=== PATIENT | female | born 1985 | race Caucasian/White ===

== ENCOUNTER 2025-02-22 12:17 | Outpatient (CLI) | payer BC, SELFPAY ==
--- NOTE | ~2025-02-22 | MM_ITS ---
EXAMINATION: MM screening nelia BI w jenna HISTORY: Screening TECHNIQUE: Craniocaudal and mediolateral oblique 3-D tomosynthesis images were obtained and synthetic 2-D images were generated. CAD analysis was submitted and interpreted. COMPARISON: No prior mammogram is available for comparison at this institution. BREAST PARENCHYMAL COMPOSITION: Dense: The breasts are heterogeneously dense, which may obscure small masses FINDINGS: There are bilateral breast asymmetries which are most likely benign, although comparison ou tside mammograms recommended. No discrete mass or suspicious calcifications. IMPRESSION: 1. Bilateral breast asymmetries. 2. Recommend comparison to previous outside mammograms. BI-RADS Category 0: Incomplete: Needs additional imaging evaluation. Reviewed, dictated and finalized at location B.
--- OUTSIDE RECORDS SUMMARY | 2025-02-22 12:24 | XMS_ITS | Clinical Summary ---
Author Organization [facility] [address] [place] [address] Care Team Providers Care Acute Care Registered Nurse Name Role Phone No, Physician Primary Care Provider [phone] Allergies No known active allergies Medications levonorgestreL (MIRENA) IUD Mirena IUD : Inserted 2018 per patient Active Active Problems No known active problems Encounters Date Type Department Care Team Description 02/17/2025 Results Follow-Up [address] [phone] Heather Breen DO Pap and HPV, reflex to HPV Genotypes 02/08/2025 10:00 AM CDT Office [facility] at [address] [place] [phone] Heather Breen DO Well woman exam (Primary Dx); Screening mammogram for breast cancer; Encounter for Papanicolaou smear for cervical cancer screening; Perimenopausal symptoms 02/06/2025 Telephone [facility] at [address] [place] [address] Heather Breen DO Appointment Reminder Call from Last 3 Months Family History Medical History Relation Name Comments No Known Problems Father Hyperlipidemia Mother Relation Name Status Comments Father Alive Mother Alive Social History Tobacco Use Types Packs/Day Years Used Date Smoking Tobacco: Never Smokeless Tobacco: Never Tobacco Cessation:Counseling Given: Not Answered AUDIT-C Answer Date Recorded Q1: How often do you have a drink containing alcohol? Never 02/08/2025 Q2: How many drinks containi ng alcohol do you have on a typical day when you are drinking? Patient does not drink Q3: How often do you have si x or more drinks on one occasion? Never 02/08/2025 PHQ-2 Answer Date Recorded PHQ-2 Total Score 0 02/08/2025 Comments Unknown Sex and Gender Information Value Date Recorded Sex Assigned at Not on file Legal Sex Female 11:35 AM CDT Gender Identity Not on file Sexual Orientation Not on file Obstetrics History Para Term AB IAB SAB Ectopic Multiple Livin g Live Births 2 2 2 1 1 Date Outcome GA Total Labor Labor/2nd/3rd Weight Sex Type Anes PTL Carly A1 A5 Name Clin 003 Term 3.402 kg (7 lb 8 oz) F Vag-S pont Epidur al Livin g Complications:None Delivery Location:[facility] 014 Term 3.43 kg (7 lb 9 oz) M Vag-S pont Epidur al Complications:None Delivery Location:[facility] Last Filed Vital Signs Vital Sign Reading Time Taken Comments Blood Pressure 116/70 02/08/2025 10:08 AM CDT Pulse - - Temperature - - Respiratory Rate - - Oxygen Saturation - - Inhaled Oxygen Concentration - - Weight 68.3 kg (150 lb 8 oz) 02/08/2025 10:08 AM CDT Height 152.4 cm (5') 02/08/2025 10:08 AM CDT Body Mass Index 29.39 02/08/2025 10:08 AM CDT Plan of Treatment Health Maintenance Due Date Last Done Comments Breast Cancer Screening-Mammogram 1983 Hepatitis C Screening 1983 Varicella Vaccines (1 of 2 - 13+ 2-dose series) 01/05/1996 HPV Vaccines (1 - 3-dose SCD M series) 2010 Influenza Vaccine (#1) 2025 Cervical Cancer Screening 02/08/2026 02/08/2025 Depression Screening 02/08/2026 02/08/2025 Regular Well Visit/Exam 18-64 02/08/2026 02/08/2025 DTaP/Tdap/Td Vaccine (2 - Td or Tdap) 01/26/2035 01/26/2025 Hepatitis B Screening Completed 02/03/2025 Pneumococcal vaccine <65 Aged Out No longer eligible based on patient's age to complete this topic Procedures Procedure Name Priority Date/Time Associated Diagnosis Comments PAP AND HPV, REFLEX TO HPV GENOTYPES Routine 02/08/2025 11:21 AM CDT Well woman exam from Last 3 Months Results * Pap and HPV, reflex to HPV Genotypes (02/08/2025 11:21 AM CDT) CLINICAL INFORMATION: [facility] Comment:WELL WOMAN EXAM: CER VICAL CANCER S LMP [facility] Comment:UNKNOWN Previous Pap [facility] Comment:NONE GIVEN Prev. Bx [facility] Comment:NONE GIVEN SOURCE: [facility] Comment:Cervix, Endocervix Pap, specimen adequacy [facility] Comment: Satisfactory for evaluation. Endocervical/transformation zone component absent. Age and/or menstrual status not provided HPV interp [facility] Comment: Cytology Results: Negative for intraepithelial lesion or malignancy. COMMENTS [facility] Comment: This Pap test has been evaluated with the ThinPrep(R) Imaging System. Sample Case [facility] Comment: LM, CT(ASCP) CT Screening Location: [place] [address] [place] [address] CLIA: [id number] Slide preparation performed at: [facility], [address] [place] [address], [address] CLIA: [id number] Comment [facility] Comment: EXPLANATORY NOTE: The Pap is a screening test for cervical cancer. It is not a diagnostic test and is subject to false negative and false positive results. It is most reliable when a satisfactory sample, regularly obtained, is submitted with relevant clinical findings and history, and when the Pap result is evaluated along with historic and current clinical information. Human papillomavirus DNA, High Risk E6/E7 Not Detected NOT DETECTED [facility] Comment: Not Detected High Risk HPV types (16,18,31,33,35,39,45,51,52, 56,58,59,66,68) were not detected. Other HPV types which cause anogenital lesions may be present. The significance of the other types of HPV in malignant processes has not been established. Methodology: Real Time PCR Thin prep-Endocervica l 02/08/2025 11:21 AM CDT 02/13/2025 7:16 AM CDT Heather Breen DO LAB CYTOLOGY ORDERABLES Final Result [facility] [address] [place] [address] [facility] [address] [place] [address] from Last 3 Months Insurance [employer] OOS Care Teams Acute Care Registered Nurse Relationship Specialty Start Date End Date No, Physician PCP - General 12/28/24
--- OUTSIDE RECORDS SUMMARY | 2025-02-22 12:24 | XMS_ITS | Referral Summary ---
Author Organization [facility] [address] Address [address] [place] [address] Care Team Providers Care Education Paraprofessional Name Role Phone No, Physician Primary Care Provider [phone] Encounters Date Type Department Care Team Description 02/17/2025 Results Follow-Up [address] [phone] Heather Breen DO Pap and HPV, reflex to HPV Genotypes 02/08/2025 10:00 AM CDT Office Visit [facility] at [address] [place] [address] Heather Breen DO Well woman exam (Primary Dx); Screening mammogram for breast cancer; Encounter for Papanicolaou smear for cervical cancer screening; Perimenopausal symptoms 02/06/2025 Telephone [facility] at [address] [place] [address] Heather Breen DO Appointment Reminder Call from Last 3 Months Allergies No known active allergies Medications levonorgestreL (MIRENA) IUD Mirena IUD : Inserted 2018 per patient Active Active Problems No known active problems Social History Tobacco Use Types Packs/Day Years [...] on file Sexual Orientation Not on file Last Filed Vital Signs Vital Sign Reading [...] 02/08/2025 10:08 AM CDT Plan of Treatment Not on file Procedures Procedure Name Priority Date/Time Associated Diagnosis Comments PAP AND HPV, REFLEX TO HPV GENOTYPES Routine 02/08/2025 11:21 AM CDT Well woman exam from Last 3 Months Results * Pap and HPV, reflex to HPV Genotypes (02/08/2025 11:21 AM CDT) CLINICAL INFORMATION: [facility] Comment:WELL WOMAN EXAM: CER VICAL CANCER S LMP [facility] Comment:UNKNOWN Previous Pap [facility] Comment:NONE GIVEN Prev. Bx [facility] Comment:NONE GIVEN SOURCE: [facility] Comment:Cervix, Endocervix Pap, specimen adequacy [facility] Comment: Satisfactory for evaluation. Endocervical/transformation zone component absent. Age and/or menstrual status not provided HPV interp [facility] Comment: Cytology Results: Negative for intraepithelial lesion or malignancy. COMMENTS [facility] Comment: This Pap test has been evaluated with the ThinPrep(R) Imaging System. [facility] Comment: LM, CT(ASCP) CT Screening Location: [place] [address] [place] [address] CLIA: [id number] Slide preparation performed at: [facility], [address] [place], [address] CLIA: [id number] Comment [facility] Comment: EXPLANATORY NOTE: The Pap is a [...] High Risk E6/E7 Not Detected NOT DETECTED [facility] Comment: Not Detected High Risk HPV types (16,18,31,33,35,39,45,51,52, 56,58,59,66,68) were not detected. Other HPV types which cause anogenital lesions may be present. The significance of the other types of HPV in malignant processes has not been established. Methodology: Real Time PCR Thin prep-Endocervica l 02/08/2025 11:21 AM CDT 02/13/2025 7:16 AM CDT us Heather Breen DO LAB CYTOLOGY ORDERABLES Final Result [facility] [address] [place] [address] [facility] [address] [place] [address] from Last 3 Months Insurance [employer] OOS Care Teams Education Paraprofessional Relationship Specialty Start Date End Date No, Physician PCP - General 12/28/24
== END 2025-02-22 12:18 | disposition home or self-care (01) ==
DX: Z12.31 Encounter for screening mammogram for malignant neoplasm of breast (principal); R92.8 Other abnormal and inconclusive findings on diagnostic imaging of breast
CPT/HCPCS: 77063; 77067